=== PATIENT | male | born 1950 | race Caucasian/White ===

== ENCOUNTER 2017-08-08 10:21 | Emergency (ER) | payer MEDICARE, BC ==
[2017-08-08] MEDS ORDERED: Lidocaine 1% 30 ML SDV INJECT ONE (11:04)
--- NOTE | 2017-08-08 19:26 | EDM.PDOC ---
ED HPI GENERAL MEDICAL PROBLEM - General Chief Complaint: Laceration Stated Complaint: LACERATION Time Seen by Provider: 08/08/17 10:38 Source of Information: Reports: Patient History Limitations: Reports: No Limitations - History of Present Illness INITIAL COMMENTS - FREE TEXT/NARRATIVE: Pt. states that his hand was kicked by a cow. Pt. sustained a laceration and crush injury to his R index finger. Pt. denies any injury elsewhere. He states that his tetanus is UTD. He states that his ROM is normal. He denies numbness/tingling to the distal portion of the finger. Onset: Today Location: Reports: Upper Extremity, Right Right 2-Index finger Pain Score (Numeric/FACES): 1 - Related Data Allergies Allergy/AdvReac Type Severity Reaction Status Date / Time No Known Allergies Allergy Verified 08/08/17 11:01 Home Meds: Home Meds Lisinopril [Lisinopril] 5 mg PO DAILY 08/08/17 [History] Simvastatin [Simvastatin] 40 mg PO DAILY 08/08/17 [History] Past Medical History Cardiovascular History: Reports: High Cholesterol, Hypertension Social & Family History - Tobacco Use Smoking Status *Q: Current Every Day Smoker Years of Tobacco use: 50 Packs/Tins Daily: 0.5 - Alcohol Use Days Per Week of Alcohol Use: 7 Number of Drinks Per Day: 1 Total Drinks Per Week: 7 - Recreational Drug Use Recreational Drug Use: No ED ROS GENERAL - Review of Systems Review Of Systems: See Below Constitutional: Reports: No Symptoms HEENT: Reports: No Symptoms Respiratory: Reports: No Symptoms Cardiovascular: Reports: No Symptoms Endocrine: Reports: No Symptoms GI/Abdominal: Reports: No Symptoms : Reports: No Symptoms Musculoskeletal: Reports: Hand Pain (R index finger) Skin: Reports: No Symptoms Neurological: Reports: No Symptoms Psychiatric: Reports: No Symptoms Hematologic/Lymphatic: Reports: No Symptoms Immunologic: Reports: No Symptoms ED EXAM, SKIN/RASH Exam: See Below Exam Limited By: No Limitations General Appearance: Alert, WD/WN, No Apparent Distress Peripheral Pulses: 2+: Radial (L), Radial (R) Extremities: Normal Inspection, Normal Range of Motion, Non-Tender, No Pedal Edema, Normal Capillary Refill, Other (4 cm laceration to dorsum of R index finger. extensor tendon visible but no trauma noted to the tendon sheath. There is a large area of devitilzed tissue on the edge and within the laceration. No obvious retained foreign material noted. No obvious crepitus. ROM is WNL.) ED SKIN PROCEDURES - Laceration/Wound Repair Right Midline Dorsal Finger Lac/Wound length In cm: 4 Appearance: Subcutaneous Distal NVT: Neuro & Vascular Intact, No Tendon Injury Anesthetic Type: Local Local Anesthesia - Lidocaine (Xylocaine): 1% Plain Local Anesthetic Volume: 4cc Skin Prep: Chlorhexidine (Hibiciens), Saline, Sterile Drape Saline Irrigation (cc's): 500 Exploration/Debridement/Repair: Wound Explored, Explored to Base, Extensive Debridement, Wound Margins Revised Closed with: Sutures Suture Size: 4-0 # of Sutures: 8 Suture Type: Nylon - Splinting Right 2nd Digit Splint Site: R index finger Pre-Procedure NV Status: Normal Post-Procedure NV Status: Normal Splint Material: Metal Applied & Form Fitted By: Provider Provider Post-Splint Application NV Check: NV Status Normal, Good Position Course - Vital Signs Last Recorded V/S: Last Vital Signs Temp 36.4 C 08/08/17 10:25 Pulse 83 08/08/17 10:25 Resp 16 08/08/17 10:25 BP 148/83 H 08/08/17 10:25 Pulse Ox 99 08/08/17 10:25 - Orders/Labs/Meds Orders: Active Orders 24 hr Category Date Time Status Fingers Multiple Rt [CR] Stat Exams 08/08/17 11:41 Taken Meds: Medications Discontinued Medications Generic Name Dose Route Start Last Admin Trade Name Joséq PRN Reason Stop Dose Admin Lidocaine HCl 30 ml 08/08/17 11:04 08/08/17 11:15 Xylocaine-Mpf 1% INJECT 08/08/17 11:05 30 ml ONETIME ONE Administration Departure - Departure Time of Disposition: 12:00 Disposition: Home, Self-Care 01 Condition: Good Clinical Impression: Laceration - Discharge Information Instructions: Amoxicillin; Clavulanic Acid tablets, Laceration Care, Adult Referrals: PCP,Not In Area [Primary Care Provider] - Forms: ED Department Discharge Additional Instructions: Come into the ER Wed. or Thurs. for a wound check. Keep dressing on until then. Return if you have fever or chills, redness or red streak coming from the laceration, or swelling/discharge/increased pain from the area. Sutures out in 14 days. If you could stop smoking, it would be very helpful for the healing process. I will call you with appt. time with hand surgery - My Orders Last 24 Hours: My Active Orders 08/08/17 11:41 Fingers Multiple Rt [CR] Stat - Assessment/Plan Last 24 Hours: My Active Orders 08/08/17 11:41 Fingers Multiple Rt [CR] Stat Assessment:: 4 cm laceration to dorsum of R index finger
== END 2017-08-08 12:00 | disposition home or self-care (01) ==
LOC: VM.ED 10:21
DX: S61.210A Laceration without foreign body of right index finger without damage to nail, initial encounter (principal); E78.00 Pure hypercholesterolemia, unspecified; I10 Essential (primary) hypertension; F17.210 Nicotine dependence, cigarettes, uncomplicated; Z79.899 Other long term (current) drug therapy; W55.22XA Struck by cow, initial encounter
CPT/HCPCS: 12002; 73140-RT; 99283; 99283-GF-25